=== PATIENT | female | born 1990 | race Hispanic/Latino ===

== ENCOUNTER 2018-04-17 23:19 | Emergency (ER) | payer OTHER ==
[2018-04-18] MEDS ORDERED: ACETAMINOPHEN 325 MG TAB ONE (00:19)
== END 2018-04-18 01:04 | disposition home or self-care (01) ==
LOC: EDH 23:19
DX: S83.92XA Sprain of unspecified site of left knee, initial encounter (principal); S83.91XA Sprain of unspecified site of right knee, initial encounter; F41.9 Anxiety disorder, unspecified; W18.39XA Other fall on same level, initial encounter; Y93.02 Activity, running; Y92.89 Other specified places as the place of occurrence of the external cause; Y99.8 Other external cause status
CPT/HCPCS: 73562